=== PATIENT | male | born 1995 | race Hispanic/Latino ===

== ENCOUNTER 2024-04-24 06:26 | Day surgery (SDC) | payer OTHER ==
[2024-04-24] MEDS ORDERED: Lidocaine 1% (PF) 30 ML VIAL ONE (06:40)
[2024-04-24] MEDS ORDERED: EPINEPHrine 1 MG/ML VIAL ONE (06:40)
[2024-04-24] MEDS ORDERED: Oxymetazoline HCl 0.05% (30 ML BOT) ONE (07:30)
[2024-04-24] MEDS ORDERED: fentaNYL PF 100 MCG/2 ML SYRINGE ONE ×4 (08:22→10:22)
[2024-04-24] MEDS ORDERED: PROPOFOL 20 ML ONE ×2 (08:23→09:21)
[2024-04-24] MEDS ORDERED: Rocuronium Bromide 10 MG/ML (10ML VIAL) ONE (08:25)
[2024-04-24] MEDS ORDERED: Ondansetron PF 4 MG/2 ML Vial ONE (08:25)
[2024-04-24] MEDS ORDERED: Lidocaine 1% PF 5 ML VIAL ONE (08:25)
[2024-04-24] MEDS ORDERED: Dexamethasone 20 MG/5 ML VIAL ONE (08:25)
[2024-04-24] MEDS ORDERED: SUGAMMADEX SODIUM 200 MG/2 ML VIAL ONE (09:14)
[2024-04-24] MEDS ORDERED: HYDROmorphone 0.5 MG/0.5 ML SYRINGE ONE (11:08)
== END 2024-04-24 12:29 | disposition home or self-care (01) ==
LOC: SDC 06:26
PROVIDERS: ATTEND Specialist
PROC: 09TL8ZZ Resection of Nasal Turbinate, Via Natural or Artificial Opening Endoscopic (ICD-10-PCS; principal; 2024-04-24)
PROC: 09BM8ZZ Excision of Nasal Septum, Via Natural or Artificial Opening Endoscopic (ICD-10-PCS; principal; 2024-04-24)
DX: J34.2 Deviated nasal septum (principal); J34.3 Hypertrophy of nasal turbinates; R04.0 Epistaxis; G47.00 Insomnia, unspecified; G47.33 Obstructive sleep apnea (adult) (pediatric); M54.9 Dorsalgia, unspecified; F12.90 Cannabis use, unspecified, uncomplicated; Z87.891 Personal history of nicotine dependence; Z79.899 Other long term (current) drug therapy
CPT/HCPCS: J0171; J1100; J1170; J2001; J2405; J2704